=== PATIENT | female | born 2005 | race Caucasian/White ===

== ENCOUNTER 2024-11-17 22:10 | Emergency (ER) | payer OTHER ==
[2024-11-17] MEDS ORDERED: Dicyclomine 20 MG/2 ML VIAL ONE (22:52)
[2024-11-17] MEDS ORDERED: Ondansetron ODT 4 MG TAB ONE (22:52)
[2024-11-17] MEDS ORDERED: Azithromycin 250 MG TAB ONE (22:52)
[2024-11-17 23:47] LABS: Pregnancy Test - Urine (BHCG) Negative (Negative); Pregu Control Background? CLEAR/WHITE (CLR/WHITE); Pregu Control Bar Appear? YES (CONTROL BAR)
[2024-11-18] MEDS ORDERED: Prochlorperazine 10 MG/2 ML VIAL ONE (00:36)
[2024-11-18] MEDS ORDERED: Ketorolac Tromethamine 30 MG (1 mL) VIAL ONE (00:36)
[2024-11-18] MEDS ORDERED: Lactated Ringer's 2,000 ML ONE (00:36)
[2024-11-18] MEDS ORDERED: diphenhydrAMINE 50 MG/ML VIAL ONE (00:36)
[2024-11-18 00:51] LABS: #Lymphocytes 1.7 thou/uL (1.20-3.40); #Monocytes 0.5 thou/uL (0.11-0.59); #Neutrophils 5.1 thou/uL (1.40-6.50); %Basophils 0.6 % (0.0-1.0); %Eosinophils 0.5 % (0.0-10.0); %Lymphocytes 22.6 % (28.0-48.0); %Neutrophils 69.3 % (31.0-61.0); Hematocrit 36.7 % (36.0-47.0); Hemoglobin 12.1 g/dL (12.0-16.0); Mean Corpuscular Hemoglobin 29.4 pg (25.0-35.0); Mean Platelet Volume 7.7 fL (7.4-10.4); Platelet Count 280 10x3/uL (130-400); RBC Distribution Width 11.5 % (11.5-14.5); Red Blood Cell (RBC) Count 4.12 mill/uL (4.00-5.20); White Blood Cell (WBC) Count 7.4 10x3/uL (4.8-10.8)
[2024-11-18 00:58] LABS: Bilirubin Negative (Negative); Blood, Urine Trace (Negative); Clarity Clear (Clear); Glucose, Urine (Dipstick) Negative (Negative); Ketone, Urine 40 mg/dL (Negative); Leukocyte Negative (Negative); Nitrite Negative (Negative); Protein, Urine (Dipstick) Negative (Neg-Trace); Specific Gravity, Urine 1.015 (1.005-1.030); Urobilinogen 0.2 mg/dL (Less than 2); pH, Urine 7.5 (5.0-9.0)
[2024-11-18 01:04] LABS: RBC/HPF 0-3 HPF (0-3)
[2024-11-18 01:05] LABS: Bacteria/HPF Rare-Few HPF (None Seen); CAUTI Indications for Culture Dysuria,urgency,freq; Squamous Epithelial 0-3 HPF (0-3); Urine Culture Reflex No No; WBC/HPF 0-3 HPF (0-3)
[2024-11-18 01:08] LABS: ALT (SGPT) 10 U/L (8-55); AST (SGOT) 15 U/L (5-34); Albumin 5.1 g/dL (3.5-5.0); Alkaline Phosphatase 48 U/L (40-100); Anion Gap 13 mmol/L (10-20); BUN (Urea Nitrogen) 8 mg/dL (7.0-18.7); Bilirubin, Total 1.4 mg/dL (0.2-1.2); Calc. Creatinine Clearance 0 mL/min (70-130); Calcium 9.8 mg/dL (7.8-10.44); Carbon Dioxide 26 mmol/L (22-29); Chloride 107 mmol/L (98-107); Estimated GFR 127; Globulin 2.5 g/dL (2.4-3.5); Glucose 98 mg/dL (70-105); Lipase 140 U/L (8-78); Magnesium 2.2 mg/dL (1.7-2.2); Potassium 3.7 mmol/L (3.5-5.1); Protein, Total 7.6 g/dL (6.0-8.3); Sodium 142 mmol/L (136-145)
== END 2024-11-18 02:02 | disposition home or self-care (01) ==
LOC: MADERS 22:10
DX: R11.10 Vomiting, unspecified (principal); R19.7 Diarrhea, unspecified
CPT/HCPCS: 80053; 81001; 81025; 83690; 83735; 85025; 94760; 96361; 96372; 96374; 96375; J0780; J1200; J1885; J7120; Q0162

== ENCOUNTER 2024-12-15 14:35 | Outpatient (CLI) | payer OTHER | END 2024-12-15 14:36 | disposition home or self-care (01) | LOC: MADLAB 14:35 → MADRAD 14:36 | PROVIDERS: ATTEND Registered Nurse | DX: M25.561 Pain in right knee (principal) ==